=== PATIENT | male | born 1980 | race Two or more races ===

== ENCOUNTER 2024-12-20 14:31 | Emergency (ER) | payer MEDICAID, SELFPAY ==
[2024-12-20 14:53] VITALS: BP 134/76; PULSE 89; RESP 18; TEMP 36.9; O2SAT 100; BMI 27.7
--- NOTE | 2024-12-20 14:56 | XR_ITS ---
EXAMINATION: Ankle, left 3 views . Technique: Ankle AP, oblique, lateral 3 views Date and time of exam: December 20, 2024 1458 hours INDICATIONS: Patient fell last week with injury to the ankle, ankle pain. FINDINGS: No acute ankle fracture No ankle dislocation No foreign body IMPRESSION: No acute fracture
--- NOTE | 2024-12-20 14:56 | XR_ITS ---
Examination: Foot, left, 3 views Technique: AP, oblique, lateral views foot, 3 views Date and time of exam: December 20, 2024 1458 hours INDICATIONS: Patient fell last week with injury to the foot, foot pain FINDINGS: Moderate narrowing first metatarsophalangeal joint No acute fracture No dislocation IMPRESSION: No acute fracture
--- NOTE | 2024-12-20 15:28 | EDNOTE_ITS ---
Lower Extremity Injury RME/HPI General Chief Complaint: Ankle/Foot Injury Stated Complaint: left foot pain s/p injury Time Seen by Provider: 12/20/24 14:56 Arrival date/time: 12/20/24 14:31 44-year-old male presents to the emergency department today for complaint of left foot pain and ankle pain patient reports symptoms ongoing for the last 6 days there are no other associated symptoms or aggravating factors no other modifying factors, patient denies taking medication before coming to ER today Limitations: no limitations Related Data Previous Rx's ?Medication ?Instructions ?Recorded cephalexin 500 mg capsule (Keflex) 500 mg PO QID #40 c aps 04/18/20 ibuprofen 800 mg tablet 800 mg PO TID PRN pain #30 t abs 12/20/24 Allergies Allergy/AdvReac Type Severity Reaction Status Date / Time NKA* Allergy Uncoded 12/20/24 14:34 Review of Systems Review of Systems Systems Reviewed: All systems reviewed, normal except as documented Constitutional Constitutional: Reports system reviewed and no additional complaints, except as documented, Denies fever(s) and Denies headache(s) Eyes Eyes: Reports system reviewed and no additional complaints, except as documented and Denies blurry vision ENT Ears, Nose, Mouth, and Throat: Reports system reviewed and no additional complaints, except as documented, Denies headache(s), Denies nasal congestion and Denies nasal discharge Cardiovascular Cardiovascular: Reports system reviewed and no additional complaints, except as documented, Denies chest pain and Denies dyspnea Respiratory Respiratory: Reports system reviewed and no additional complaints, except as documented, Denies chest congestion, Denies cough and Denies dyspnea Gastrointestinal Gastrointestinal: Reports system reviewed and no additional complaints, except as documented and Denies abdominal pain Musculoskeletal Musculoskeletal: Reports system reviewed and no additional complaints, except as documented, Reports arthralgias, Denies deformity and Denies numbness Integumentary/Breasts Skin/Breast: Reports system reviewed and no additional complaints, except as documented and Denies rash Neurologic Neurologic: Reports system reviewed and no additional complaints, except as documented, Reports as per HPI, Denies headache(s) and Denies numbness Past Medical History Past Medical History CARDIAC: Positive Cardiac Disorders (ABNORMAL HEART BEAT PER PT) and Hypertension; Negative Congestive Heart Failure RESPIRATORY: Negative Chronic Obstructive Pulmonary Disease (COPD) GENITOURINARY: Negative Renal Disease ENDOCRINE: Positive Diabetes Mellitus Type 2; Negative Diabetes Mellitus Type 1 Social History SMOKING STATUS: Never smoker SUBSTANCE USE: marijuana ED Exam General Limitations: Present no limitations General appearance: Present alert and in no apparent distress Head Head exam: Present atraumatic Eye Eye exam: Present normal appearance, PERRL and EOMI ENT ENT exam: Present normal exam, normal oropharynx and mucous membranes moist Neck Neck exam: Present normal inspection, full ROM and trachea midline Chest Chest inspection: Present normal inspection and symmetric chest wall rise Respiratory Respiratory exam: Present normal lung sounds bilaterally Cardiovascular Cardiovascular exam: Present regular rate, normal rhythm and normal heart sounds Abdominal Exam Abdominal exam: Present soft and normal bowel sounds Extremities Exam Extremities exam: Present full ROM, tenderness and normal capillary refill; Absent joint swelling Back Exam Back exam: Present normal inspection and full ROM Neurological Exam Neurological exam: Present alert, oriented X3, CN II-XII intact, normal gait and reflexes normal; Absent motor sensory deficit Psychiatric Psychiatric exam: Present normal affect and normal mood Skin Skin exam: Present warm, dry, intact and normal color Course Quality Measures none Orders Category Date Time Status XR ankle comp LT min 3V Stat Exams 12/20/24 14:56 Completed XR foot comp LT min 3V Stat Exams 12/20/24 14:56 Completed Vital Signs Vital signs: Vital Signs Temperature 98.5 F 12/20/24 14:53 Pulse Rate 89 12/20/24 14:53 Respiratory Rate 18 12/20/24 14:53 Blood Pressure 134/76 H 12/20/24 14:53 Pulse Oximetry (%) 100 12/20/24 14:53 Oxygen Delivery Method Room Air 12/20/24 14:53 O2 saturation 100% on room air with normal limits Extremity Injury, Lower MDM Narrative MDM Narrative:: 44-year-old male presents to the emergency department today for complaint of left foot pain and ankle pain patient reports symptoms ongoing for the last 6 days there are no other associated symptoms or aggravating factors no other modifying factors, patient denies taking medication before coming to ER today On exam patient has left foot and ankle pain patient is ambulatory no bruising or swelling noted Imaging obtained no acute fracture or dislocation noted Patient discharged home in no distress to follow-up with primary care doctor in the next 24 to 48 hours and for any worsening symptoms to return to the ER immediately Patient data External records reviewed:: [facility] previous records Clinical information provided by:: patient Social determinants that could affect healthcare access:: alcohol use Patient has the following chronic illnesses:: Alcohol use How is presenting disease/condition affected by chronic disease/condition?: uneffected by Evaluation data The following diagnostics were reviewed and interpreted by me:: radiology exam(s) Lab and/or radiology exams considered but not ordered:: Radiology obtain Interpretation Summary: Reviewed by me Medications / Prescriptions Medications or Prescriptions considered but not ordered:: Given Medication administrations:: Given Consultations Consultation(s) initiated? (list below): No Diagnosis Extremity Injury, Lower Differential Diagnosis: other Most likely diagnosis given after review of the tests above:: Foot sprain Admission Indicated Admission indicated?: not indicated Admission Request Was there a request for admission?: No Disposition Plan Disposition Plan: Discharge Discharge Attestation Discharge Attestation: The patient and all family members were given an opportunity to ask questions and understood the discharge instructions. Discharge instructions specifically effects, indications for sooner follow up or return to the emergency department, and the expected course of current diagnosis. Patient condition: Stable Discharge Plan Plan Patient Disposition: HOME (Self Care) Discharge Disposition comment: Stable Prescriptions/Referrals Prescriptions/Med Rec: New ibuprofen 800 mg tablet 800 mg PO TID PRN (Reason: pain) Qty: 30 0RF No Action cephalexin [Keflex] 500 mg capsule 500 mg PO QID Qty: 40 0RF Problem List Clinical Impression: Foot sprain, Sprain of foot, left Patient/Caregiver Discharge Instructions Education Materials: ED Foot Sprain Additional Instructions: Please follow up with your primary care doctor in the next 24-48hrs for any worsening symptoms return here immediately Print Language: Romanian Stand Alone Forms: Tala Award Info., Patient Portal Info Letter PA/ANAMIKA Supervising Physician AMINA/ANAMIKA Supervising Physician: Dr. perea
== END 2024-12-20 15:43 | disposition home or self-care (01) ==
LOC: SERX 15:41
PROVIDERS: Emergency Provider Emergency Medicine
DX: S93.602A Unspecified sprain of left foot, initial encounter (principal); S99.912A Unspecified injury of left ankle, initial encounter; W19.XXXA Unspecified fall, initial encounter
CPT/HCPCS: 73610; 73630; 99283

== ENCOUNTER 2025-05-18 09:20 | Emergency (ER) | payer MEDICAID, SELFPAY ==
[2025-05-18 09:32] VITALS: BP 174/109; PULSE 99; RESP 17; TEMP 36.7; O2SAT 98
--- NOTE | 2025-05-18 10:36 | PC.NURSE ---
pt was called back for lab work. pt did not answer at this time.
--- NOTE | 2025-05-18 11:32 | PC.NURSE ---
NA x2 & 3 @ 1101, 1133, per ED security patient and patient spouse seen leaving hospital property.
--- NOTE | 2025-05-18 12:23 | PD.EDRME ---
Rapid Medical Screening Exam RME Arrival date/time: 05/18/25 09:20 45-year-old male presents to the emergency department today for complaint of right foot infection ongoing for a week Chief Complaint: Ankle/Foot Injury Time Seen by Provider: 05/18/25 09:22 Vital signs: Vital Signs Temperature 98.1 F 05/18/25 09:32 Pulse Rate 99 05/18/25 09:32 Respiratory Rate 17 05/18/25 09:32 Blood Pressure 174/109 H 05/18/25 09:32 Pulse Oximetry (%) 98 05/18/25 09:32 Oxygen Delivery Method Room Air 05/18/25 09:32 Vital signs reviewed by provider: Yes Exam: On exam patient appears to have infection right lower extremity in the foot Neurovascular intact Clinical Impression: Lab work and imaging ordered will reevaluate after labs are completed Differential include but not limited to cellulitis, abscess, osteomyelitis
== END 2025-05-18 11:35 | disposition left against medical advice (07) ==
LOC: SERX 11:39
PROVIDERS: Emergency Provider Emergency Medicine
DX: Z53.21 Procedure and treatment not carried out due to patient leaving prior to being seen by health care provider (principal)
CPT/HCPCS: 80053; 80307; 83036; 83605; 84145; 85025; 85610; 85652; 86140; 87040; 99281